=== PATIENT | female | born 1955 | race Caucasian/White ===

== ENCOUNTER → 2019-06-09 | Outpatient (CLI) | payer BC ==
--- NOTE | 2019-06-09 14:44 | Diagnostic Imaging Report ---
INDICATION: Palpable lump in the left breast. COMPARISON: Correlation is made with the prior exam from 12/12/2010. TECHNIQUE: 2D and 3D bilateral diagnostic mammography was performed with CAD. A BB marker was placed at the area of palpable abnormality in the upper and outer left breast. FINDINGS: Both breasts are heterogeneously dense, limiting the sensitivity of mammography. No underlying mass is seen at the area of palpable abnormality in the left breast. There is a circumscribed nodule in the lower inner right breast approximately 5 to 6 cm from the nipple. Further evaluation of this area with ultrasound is recommended. No malignant appearing microcalcifications are seen. The axillae are unremarkable. IMPRESSION: 1. No sonographic abnormality at the area of palpable abnormality in the upper outer left breast is identified. Even so, directed sonographic interrogation of this area is recommended and will be performed today. 2. There is a circumscribed nodule in the lower inner right breast 5 to 6 cm from the nipple. Further evaluation of this area with ultrasound is also recommended. ACR BI-RADS Category 0: Incomplete. (Needs additional imaging evaluation). Result letter will be mailed to the patient. Note: At least 10% of breast cancer is not imaged by mammography. Dictated by: Dictated on workstation # [id number]
--- NOTE | 2019-06-09 16:19 | Diagnostic Imaging Report ---
INDICATION: Left breast lump and right breast density. This study was performed for further evaluation. COMPARISON: Correlation is made with the diagnostic mammogram from earlier this same day. TECHNIQUE: Sonographic interrogation of the lower inner right breast was performed. FINDINGS: There is a hypoechoic mass at the 4 o'clock location 4 cm from the nipple measuring 10 mm x 8 mm x 6 mm. This appears to have some internal debris and most likely represents a complex cyst. No internal vascularity is present. This likely accounts for the density noted mammographically. Sonographic interrogation of the area of lump at the 12 o'clock location of the left breast was performed. No solid or cystic mass is detected. IMPRESSION: 1. No sonographic abnormality is identified at the area of palpable abnormality in the left breast. Continued clinical and self breast exams are recommended to confirm stability. 2. Probable complex cyst at the 4 o'clock location of the right breast 4 cm from the nipple. A followup right breast ultrasound in 6 months is recommended to confirm stability. ACR BI-RADS Category 3: Probably benign findings. Dictated by: Dictated on workstation # [id number]
== END ==
LOC: RAD 13:29
PROVIDERS: ATTEND Family Medicine
DX: N63.14 Unspecified lump in the right breast, lower inner quadrant (principal); N63.20 Unspecified lump in the left breast, unspecified quadrant
CPT/HCPCS: 76642; 77066